=== PATIENT | female | born 1990 | race Native Hawaiian/Other Pacific Islander ===

== ENCOUNTER → 2017-03-02 | Outpatient (CLI) | payer OTHER | LOC: FIMAGING 09:15 | PROVIDERS: ATTEND Student in an Organized Health Care Education/Training Program | DX: O30.041 Twin pregnancy, dichorionic/diamniotic, first trimester (principal); O26.891 Other specified pregnancy related conditions, first trimester; M32.9 Systemic lupus erythematosus, unspecified; R76.0 Raised antibody titer; Z3A.12 12 weeks gestation of pregnancy; Z87.51 Personal history of pre-term labor; Z98.891 History of uterine scar from previous surgery ==

== ENCOUNTER → 2017-03-31 | Outpatient (CLI) | payer OTHER, MEDICAID | LOC: FIMAGING 09:18 | PROVIDERS: ATTEND Student in an Organized Health Care Education/Training Program | DX: O30.042 Twin pregnancy, dichorionic/diamniotic, second trimester (principal); O09.212 Supervision of pregnancy with history of pre-term labor, second trimester; O99.89 Other specified diseases and conditions complicating pregnancy, childbirth and the puerperium; Z3A.16 16 weeks gestation of pregnancy ==

== ENCOUNTER → 2017-04-14 | Outpatient (CLI) | payer BC, MEDICAID | LOC: FIMAGING 08:58 | PROVIDERS: ATTEND Student in an Organized Health Care Education/Training Program | DX: O30.041 Twin pregnancy, dichorionic/diamniotic, first trimester (principal); O09.213 Supervision of pregnancy with history of pre-term labor, third trimester ==

== ENCOUNTER → 2017-05-07 | Outpatient (CLI) | payer BC, MEDICAID | LOC: FIMAGING 09:34 | PROVIDERS: ATTEND Student in an Organized Health Care Education/Training Program | DX: O30.042 Twin pregnancy, dichorionic/diamniotic, second trimester (principal); O09.212 Supervision of pregnancy with history of pre-term labor, second trimester; Z3A.21 21 weeks gestation of pregnancy ==

== ENCOUNTER → 2017-05-21 | Outpatient (CLI) | payer BC, MEDICAID | LOC: FLAB 11:33 | PROVIDERS: ATTEND Student in an Organized Health Care Education/Training Program | DX: O30.042 Twin pregnancy, dichorionic/diamniotic, second trimester (principal); Z3A.23 23 weeks gestation of pregnancy ==

== ENCOUNTER → 2017-06-11 | Outpatient (CLI) | payer BC, MEDICAID | LOC: FIMAGING 11:42 | PROVIDERS: ATTEND Student in an Organized Health Care Education/Training Program | DX: O30.042 Twin pregnancy, dichorionic/diamniotic, second trimester (principal); O36.62X1 Maternal care for excessive fetal growth, second trimester, fetus 1; O26.892 Other specified pregnancy related conditions, second trimester; O09.212 Supervision of pregnancy with history of pre-term labor, second trimester; M32.9 Systemic lupus erythematosus, unspecified; Z3A.26 26 weeks gestation of pregnancy; Z98.891 History of uterine scar from previous surgery ==

== ENCOUNTER → 2017-07-09 | Outpatient (CLI) | payer BC, MEDICAID | LOC: FIMAGING 11:19 | PROVIDERS: ATTEND Student in an Organized Health Care Education/Training Program | DX: O30.043 Twin pregnancy, dichorionic/diamniotic, third trimester (principal); O26.893 Other specified pregnancy related conditions, third trimester; O09.213 Supervision of pregnancy with history of pre-term labor, third trimester; M32.9 Systemic lupus erythematosus, unspecified; R76.0 Raised antibody titer; Z3A.30 30 weeks gestation of pregnancy; Z98.891 History of uterine scar from previous surgery ==

== ENCOUNTER → 2017-08-04 | Outpatient (CLI) | payer BC, MEDICAID | LOC: FIMAGING 09:33 | PROVIDERS: ATTEND Student in an Organized Health Care Education/Training Program | DX: O30.043 Twin pregnancy, dichorionic/diamniotic, third trimester (principal); O99.113 Other diseases of the blood and blood-forming organs and certain disorders involving the immune mechanism complicating pregnancy, third trimester; O09.293 Supervision of pregnancy with other poor reproductive or obstetric history, third trimester; Z3A.34 34 weeks gestation of pregnancy ==